=== PATIENT | female | born 1990 | race Asian ===

== ENCOUNTER 2017-04-25 07:25 | Inpatient (IN) | payer OTHER, MEDICAID ==
[2017-04-25] MEDS ORDERED: Misoprostol TAB* 100 MCG ONE (07:58)
[2017-04-25] MEDS ORDERED: Misoprostol TAB* 100 MCG PO ONE (08:05)
[2017-04-25] MEDS ORDERED: Penicillin G Potassium IV* 5,000,000 UNITS in NS 0.9% 100 ML* 100 ML IVPB ONE (08:05)
[2017-04-25 09:36] LABS: Hematocrit 40 % (35-47); Hemoglobin 13.6 g/dl (12.0-16.0); Mean Corpuscular HGB Conc 34 g/dl (31-36); Mean Corpuscular Hemoglobin 31 pg (27-31); Mean Corpuscular Volume 92 fL (80-97); Mean Platelet Volume 8 um3 (7.4-10.4); Red Blood Count 4.33 10^6/ul (4.0-5.4); Red Cell Distribution Width 14 % (10.5-15); White Blood Count 10.5 10^3/ul (3.5-10.8)
[2017-04-25] MEDS: Penicillin G Potassium IV* 2,500,000 UNITS in NS 0.9% 100 ML* 100 ML IVPB SCH ×3 (14:12→22:15)
[2017-04-25] MEDS ORDERED: Oxytocin in LR* 20 UNITS/1,000 ML BAG IVPB SCH (15:00)
[2017-04-26] MEDS ORDERED: OBEPIDURAL* 250 ML EPIDURAL ONE (01:03)
[2017-04-26] MEDS ORDERED: Phenylephrine IV* 40 MCG/ML 10 ML SYRINGE IV PUSH PRN ×2 (01:54)
[2017-04-26] MEDS ORDERED: Sodium Citrate/Citric Acid* 15 ML UDC PO PRN (01:54)
[2017-04-26] MEDS ORDERED: OBEPIDURAL* 250 ML EPIDURAL SCH (02:00)
[2017-04-26] MEDS: Penicillin G Potassium IV* 2,500,000 UNITS in NS 0.9% 100 ML* 100 ML IVPB SCH ×2 (02:20→06:15)
[2017-04-26] MEDS ORDERED: ceFOXitin 2 GM IVPREMIX* 2 GM/50 ML BAG ONE (07:45)
[2017-04-26] MEDS ORDERED: ceFOXitin 2 GM IVPREMIX* 2 GM/50 ML BAG IVPB ONE (07:49)
[2017-04-26] MEDS ORDERED: Lidocaine 2% EPI 1:200000 MPF* 20 ML VIAL ONE (08:20)
[2017-04-26] MEDS ORDERED: Famotidine IV* 10 MG/ML 2 ML (20 mg) ONE (08:20)
[2017-04-26] MEDS ORDERED: Bupivacaine 0.5% SDV PF* 30 ML VIAL ONE (08:20)
[2017-04-26] MEDS ORDERED: Phenylephrine IV* 40 MCG/ML 10 ML SYRINGE ONE (08:20)
[2017-04-26] MEDS ORDERED: Morphine PF AMP (0.5MG/ML)* 5 MG/10 ML AMP ONE (08:21)
[2017-04-26] MEDS ORDERED: OXYTOCIN* 10 UNITS/ML 1 ML VIAL ONE (09:12)
[2017-04-26] MEDS ORDERED: Dexamethasone IV* 4 MG/ML 1 ML (4 MG) ONE (09:12)
[2017-04-26] MEDS ORDERED: Ketorolac INJ* 30 MG/ML 1 ML VIAL ONE (09:12)
[2017-04-26] MEDS ORDERED: Ondansetron INJ* 2 MG/ML VIAL ONE (09:18)
[2017-04-26] MEDS ORDERED: fentaNYL* 50 MCG/ML 2 ML VIAL (100 MCG VIAL) IV PRN (09:22)
[2017-04-26] MEDS ORDERED: Ondansetron INJ* 2 MG/ML VIAL IV PRN (09:23)
[2017-04-26] MEDS ORDERED: Nalbuphine* 20 MG/ML 1 ML VIAL IV PRN ×2 (09:23)
[2017-04-26] MEDS ORDERED: PROCHLORPERAZINE INJ 5 MG/ML 2 ML VIAL IV PRN (09:23)
[2017-04-26] MEDS ORDERED: diPHENhydraMINE IV* 50 MG/ML 1 ml VIAL (BENADRYL) IV PRN (09:23)
[2017-04-26] MEDS ORDERED: HYDROcodone/ACETAMIN 5-325 MG* 1 TAB PO PRN (09:23)
[2017-04-26] MEDS ORDERED: Naloxone* 0.4 MG/ML 1 ML VIAL IV PRN (09:23)
[2017-04-26] MEDS ORDERED: DiMENhydriNATE IV* 50 MG/ML VIAL IV PUSH PRN (09:23)
[2017-04-26] MEDS ORDERED: Dibucaine 1% 28.35 GM TUBE PR PRN (09:32)
[2017-04-26] MEDS ORDERED: Glycerin ADULT SUPP PR PRN (09:32)
[2017-04-26] MEDS ORDERED: Zolpidem TAB* 5 MG PO PRN (09:32)
[2017-04-26] MEDS ORDERED: oxyCODONE/Acetamin 5/325 MG* TAB PO PRN ×2 (09:32)
[2017-04-26] MEDS ORDERED: Witch Hazel PAD* JAR TOPICAL PRN (09:32)
[2017-04-26] MEDS ORDERED: Acetaminophen TAB* 325 MG PO SCH (10:00)
[2017-04-26] MEDS: Simethicone TAB* 80 MG TAB.CHEW PO SCH ×3 (13:10→23:22)
[2017-04-26] MEDS: Docusate CAP* 100 MG PO SCH ×2 (15:24→23:23)
[2017-04-26] MEDS: Ketorolac INJ* 30 MG/ML 1 ML VIAL IV PRN ×2 (15:34→22:37)
[2017-04-26] MEDS ORDERED: Scopolamine 1.5 mg* PATCH TRANSDERM SCH (17:00)
[2017-04-26] MEDS ORDERED: Scopolamine 1.5 mg* PATCH ONE (17:02)
[2017-04-26] MEDS: Acetaminophen TAB* 325 MG PO SCH ×2 (17:05→23:23)
[2017-04-27] MEDS ORDERED: Acetaminophen TAB* 325 MG PO PRN (00:36)
--- NOTE | 2017-04-27 06:13 | OP ---
OPERATIVE REPORT: DATE OF OPERATION: 04/26/17 DATE OF : 89 SURGEON: Mauri Davila MD SPEECH COMMUNICATION INSTRUCTOR: Dr. King. ANESTHESIA: Spinal. PRE-OP DIAGNOSES: Postdated at 41 weeks with nonreassuring monitoring, category II t racing, and arrest of descent. POST-OP DIAGNOSES: Postdated at 41 weeks with nonreassuring monitoring, category II tracing, and arrest of descent. OPERATIVE PROCEDURE: Primary low-transverse section. ESTIMATED BLOOD LOSS: 700 cc. URINE OUTPUT: 500 cc clear urine. IV FLUIDS: 2500 cc. FINDINGS: Delivery of a viable female infant with Apgars of 8 and 10, weight 8 pounds and 4 ounces w ith a body cord x2. The placenta grossly intact. Uterus, adnexa, bowel and bladder were within norm al limits. DESCRIPTION OF PROCEDURE: The patient was taken to the operating room where she was identified. She was placed on operating table where a spinal anesthetic was obtained without difficulty. She was th en placed in the supine position with a leftward tilt, prepped and draped in a normal sterile fashion . A Pfannenstiel skin incision was made with a knife and carried through to the underlying layer of fascia. The fascia was nicked in the midline and extended laterally with curved Wynn scissors. The f ascia was grasped superiorly, inferiorly with Aissatou clamps and dissected off sharply from the rectus muscle. The rectus muscle was in the midline bluntly. The peritoneum was identified, gra sped with pickups, entered sharply with Metzenbaum scissors and extended superiorly, inferiorly, and sharply. A bladder blade was inserted into the patient's abdomen. A bladder flap was created using M etzenbaum scissors over which the bladder blade was then reinserted. A low transverse uterine incisio n was made with a knife, extended laterally with bandage scissors. The amniotic sac was ruptured. T he infant's head was then grasped and delivered atraumatically. The rest of the infant's body was th en delivered. The cord was clamped and cut. The infant was then given to the carbon capture power plant operator. Cord bl oods were obtained. The placenta was removed manually. The uterus was then exteriorized, cleared of all clot and debris using moist sponges. The uterine incision was closed using 0 Polysorb suture in a running locked fashion with a second imbricating layer of 0 Polysorb suture. Hemostasis at the [place] rine incision was noted. The uterus was returned to the patient's abdomen. The gutters were then cl eared off all clot and debris using moist sponges. Sponges and instruments were removed from the pat ient's abdomen. The peritoneum was closed using 3-0 Polysorb suture in a running fashion, the fascia was closed using 0 Polysorb suture in a running fashion, and the skin was closed with 4-0 Monocryl s ubcuticular stitch. The patient tolerated the procedure well. Sponge, lap, and needle counts were c orrect x2. She was then transferred to recovery room area in stable condition. [id number]/[facility] #: [id number]
[2017-04-27 07:41] LABS: Hematocrit 27 % (35-47); Hemoglobin 9.3 g/dl (12.0-16.0); Mean Corpuscular HGB Conc 34 g/dl (31-36); Mean Corpuscular Hemoglobin 31 pg (27-31); Mean Corpuscular Volume 92 fL (80-97); Mean Platelet Volume 8 um3 (7.4-10.4); Red Blood Count 2.96 10^6/ul (4.0-5.4); Red Cell Distribution Width 13 % (10.5-15); White Blood Count 15.6 10^3/ul (3.5-10.8)
[2017-04-27] MEDS: Ibuprofen TAB* 600 MG PO SCH ×3 (09:00→21:49)
[2017-04-27] MEDS: Docusate CAP* 100 MG PO SCH ×4 (09:10→23:10)
[2017-04-27] MEDS: Ketorolac INJ* 30 MG/ML 1 ML VIAL IV PRN (09:10)
[2017-04-27] MEDS: Ferrous Gluconate TAB* 324 MG TAB PO SCH ×3 (09:15→23:10)
[2017-04-27] MEDS: Simethicone TAB* 80 MG TAB.CHEW PO SCH ×5 (09:17→23:10)
[2017-04-27] MEDS ORDERED: Ibuprofen TAB* 600 MG PO PRN (09:27)
[2017-04-28 08:29] VITALS: BP 109/56
[2017-04-28] MEDS ORDERED: Varicella Virus Vaccine Live* 0.5 ML VIAL SUBCUT ONE (09:00)
[2017-04-28] MEDS: Simethicone TAB* 80 MG TAB.CHEW PO SCH ×4 (09:43→21:52)
[2017-04-28] MEDS: Docusate CAP* 100 MG PO SCH ×3 (09:43→21:52)
[2017-04-28] MEDS: Ibuprofen TAB* 600 MG PO SCH ×3 (09:44→21:53)
[2017-04-28] MEDS: Ferrous Gluconate TAB* 324 MG TAB PO SCH (21:53)
[2017-04-29] MEDS: Ferrous Gluconate TAB* 324 MG TAB PO SCH (08:36)
[2017-04-29] MEDS: Ibuprofen TAB* 600 MG PO SCH ×2 (08:36→14:34)
[2017-04-29] MEDS: Simethicone TAB* 80 MG TAB.CHEW PO SCH ×2 (08:36→12:28)
[2017-04-29] MEDS: Docusate CAP* 100 MG PO SCH ×2 (08:36→14:34)
[2017-04-29] MEDS ORDERED: Scopolamine PATCH Remove* 1 NOTE MISC PATCH OFF SCH (17:00)
== END 2017-04-29 17:00 | disposition home or self-care (01) | DRG 540 ==
LOC: MCHOBOUT 07:25 → MCHOB 08:05
PROVIDERS: ADMIT Obstetrics & Gynecology; ATTEND Obstetrics & Gynecology
PROC: 3E033VJ Introduction of Other Hormone into Peripheral Vein, Percutaneous Approach (ICD-10-PCS; 2017-04-26)
PROC: 4A1HX4Z Monitoring of Products of Conception, Cardiac Electrical Activity, External Approach (ICD-10-PCS; 2017-04-26)
PROC: 10D00Z1 Extraction of Products of Conception, Low, Open Approach (ICD-10-PCS; 2017-04-26)
PROC: 10907ZC Drainage of Amniotic Fluid, Therapeutic from Products of Conception, Via Natural or Artificial Opening (ICD-10-PCS; principal; 2017-04-26 08:01)
DX: O48.0 Post-term pregnancy (principal); O62.1 Secondary uterine inertia; O99.824 Streptococcus B carrier state complicating childbirth; O69.81X0 Labor and delivery complicated by cord around neck, without compression, not applicable or unspecified; Z3A.41 41 weeks gestation of pregnancy; Z37.0 Single live birth; O90.81 Anemia of the puerperium; O76 Abnormality in fetal heart rate and rhythm complicating labor and delivery
CPT/HCPCS: 36415; 85025; 86850; 86900; 86901; A9270-GY; J0694; J1100; J1240; J1885; J2405; J2540; J2590; S0191

== ENCOUNTER 2017-05-06 05:53 | Emergency (ER) | payer MEDICAID, OTHER ==
[2017-05-06 06:01] VITALS: BP 132/76
[2017-05-06] MEDS ORDERED: hydrOXYzine HCL TAB* 50 MG ONE (06:14)
[2017-05-06] MEDS ORDERED: Famotidine TAB* 20 MG PO ONE (06:18)
[2017-05-06] MEDS ORDERED: predniSONE TAB* 20 MG PO ONE (06:18)
[2017-05-06] MEDS ORDERED: hydrOXYzine HCL TAB* 50 MG PO ONE (06:18)
--- NOTE | 2017-05-11 21:33 | ED ---
Micah Pool Tecjoon, scribed for Nile Helton MD on 05/06/17 at 0643 . Allergic Reaction/Systemic - HPI Summary HPI Summary: This patient is a 26 year old female presenting to [facility] accompanied by friend with a chief complaint of skin rash since 3-4 days ago. Patient has a rash all around her lower abdomen and reaching around to her back. Patient states that the rash is extremely itchy. Patient recently had a and was given hydrocortisone cream. Patient states that she has not worn any new clothes or cream apart from that. Patient is breast feeding baby and was started on ibuprofen and iron after . Patient denies pain. - History of Current Complaint Chief Complaint: EDRashSkinAbscess Hx Obtained From: Patient Hx Last Menstrual Period: 07/22/13 Onset/Duration: Still Present Timing: Constant Severity Currently: Moderate Pain Intensity: 0 Pain Scale Used: 0-10 Numeric Location: Discrete @ - abdomen Character: Hives Aggravating Factor(s): Nothing Alleviating Factor(s): Nothing Associated Signs And Symptoms: Negative: Abdominal Pain - Allergies/Home Medications Allergies/Adverse Reactions: Allergies Allergy/AdvReac Type Severity Reaction Status Date / Time No Known Allergies Allergy Verified 05/06/17 06:02 PMH/Surg Hx/FS Hx/Imm Hx Previously Healthy: No Endocrine/Hematology History: Reports: Hx Anemia - MILD Denies: Hx Diabetes, Hx Thyroid Disease Cardiovascular History: Denies: Hx Hypertension, Other Cardiovascular Problems/Disorders Respiratory History: Denies: Hx Asthma, Hx Chronic Obstructive Pulmonary Disease (COPD), Other Respiratory Problems/Disorders GI History: Denies: Hx Ulcer, Other GI Disorders Musculoskeletal History: Denies: Other Musculoskeletal History Sensory History: Denies: Hx Contacts or Glasses, Hx Hearing Aid Opthamlomology History: Denies: Hx Contacts or Glasses - Surgical History Hx Anesthesia Reactions: No Infectious Disease History: No Infectious Disease History: Denies: Hx Clostridium Difficile, Hx Hepatitis, Hx Human Immunodeficiency Virus (HIV), Hx of Known/Suspected MRSA, Hx Shingles, Hx Tuberculosis, Traveled Outside the [place] in Last 30 Days - Family History Known Family History: Negative: Hypertension - Social History Lives: Dormitory/Roommates Alcohol Use: Occasionally Hx Substance Use: No Substance Use Type: Reports: None Hx Tobacco Use: No Smoking Status (MU): Never Smoked Tobacco Have You Smoked in the Last Year: No Review of Systems Negative: Fever Negative: Abdominal Pain Positive: Rash All Other Systems Reviewed And Are Negative: Yes Physical Exam - Summary Physical Exam Summary: VITAL SIGNS: Reviewed. GENERAL: Patient is a well-developed and nourished female who is lying comfortable in the stretcher. Patient is not in any acute respiratory distress. HEAD AND FACE: No signs of trauma. No ecchymosis, hematomas or skull depressions. No sinus tenderness. EYES: PERRLA, EOMI x 2, No injected conjunctiva, no nystagmus. EARS: Hearing grossly intact. Ear canals and tympanic membranes are within normal limits. MOUTH: Oropharynx within normal limits. NECK: Supple, trachea is midline, no adenopathy, no JVD, no carotid bruit, no c- spine tenderness, neck with full ROM. CHEST: Symmetric, no tenderness at palpation LUNGS: Clear to auscultation bilaterally. No wheezing or crackles. CVS: Regular rate and rhythm, S1 and S2 present, no murmurs or gallops appreciated. ABDOMEN: Soft, non-tender. No signs of distention. No rebound no guarding, and no masses palpated. Bowel sounds are normal. EXTREMITIES: FROM in all major joints, no edema, no cyanosis or clubbing. NEURO: Alert and oriented x 3. No acute neurological deficits. Speech is normal and follows commands. SKIN: Diffuse macular rash over abdomen Triage Information Reviewed: Yes Vital Signs On Initial Exam: Initial Vitals Temp Pulse Resp BP Pulse Ox 99.0 F 87 14 132/76 99 05/06/17 05:55 05/06/17 05:55 05/06/17 05:55 05/06/17 05:55 05/06/17 05:55 Vital Signs Reviewed: Yes - [place] Coma Scale Coma Scale Total: 15 Diagnostics - Vital Signs Vital Signs Temp Pulse Resp BP Pulse Ox 05/06/17 05:55 99.0 F 87 14 132/76 99 - Laboratory Lab Statement: Any lab studies that have been ordered have been reviewed, and results considered in the medical decision making process. Allergic Reaction Course/Dx - Course Course Of Treatment: This patient is a 26 year old female presenting to [facility] accompanied by friend with a chief complaint of skin rash since 3-4 days ago. Patient has a rash all around her lower abdomen and reaching around to her back. Patient states that the rash is extremely itchy. In the ED course the patient was given Deltasone, Atarax, Pepsid. Patient will be discharged with a diagnosis of 1. Allergic reaction and 1. Urticaria with a prescription for Prednisone and Vistaril. Patient to be signed out at end of shift for re-eval to Dr. Duff. - Diagnoses Provider Diagnoses: Allergic reaction, Urticaria Discharge - Discharge Plan Condition: Stable Disposition: HOME Prescriptions: Hydroxyzine Pamoate [Vistaril] 50 mg PO Q6HR PRN #20 cap PRN Reason: Itching predniSONE TAB* [Deltasone TAB*] 40 mg PO DAILY #10 tab Patient Education Materials: Urticaria (ED), General Allergic Reaction (ED) Referrals: No Primary Care Phys,NOPCP [Primary Care Provider] - 3 Days Additional Instructions: Patient will be discharged with a diagnosis of 1. Allergic reaction and 1. Urticaria with a prescription for Prednisone and Vistaril. Patient is advised to follow up with PCP in 3 days. The patient is agreeable with this plan. Take prednisone and vistaril as directed. RETURN TO EMERGENCY DEPARTMENT FOR ANY NEW OR WORSENING SYMPTOMS The documentation as recorded by the Micah zeng Tecjoon accurately reflects the service I personally performed and the decisions made by , Nile Helton MD.
--- NOTE | 2017-05-12 10:35 | ED ---
Jose Pool Angela, scribed for Lam Duff MD on 05/06/17 at 0745 . Progress - Progress Note Progress Note: This pt was signed out by Dr. Helton, pending disposition, awaiting observation. At 07:45 pt is feeling better and is requesting discharge. Pt will be discharged to home, in stable condition, with a diagnosis of allergic reaction and urticaria. Pt was given a prescription for Vistaril and Prednisone by Dr. Helton. Course/Dx - Diagnoses Provider Diagnoses: Allergic reaction, Urticaria The documentation as recorded by the Jose zeng Angela accurately reflects the service I personally performed and the decisions made by Omega raymundo Jerry, MD.
== END 2017-05-06 07:53 | disposition home or self-care (01) ==
LOC: ED 05:53
DX: L50.0 Allergic urticaria (principal)
CPT/HCPCS: 99282; A9270-GY; J7512